=== PATIENT | male | born 1965 | race Caucasian/White ===

== ENCOUNTER → 2018-06-02 | Outpatient (CLI) | payer MEDICARE, MEDICAID ==
[~2018-06-02] MED LIST: ADVAIR HFA115 MCG/21 INH; AZITHROMYCIN 2250 MG PO; BENTYL 10 MG CA10 M1 PO; CIPRO500 MG PO; CLONIDINE0.1 PO; COLACE100 MG PO; CYMBALTA20 MG PO; FLAGYL500 MG PO; LASIX 20 MG TAB20 MG PO; LIORESAL 10 MG10 MG PO; MAXZIDE-25 MG1 EACH PO; MOBIC15 MG PO; OXYCODONE HCL10 MG PO; PREDNISONE 20 M20 M1 PO; PREDNISONE50 MG PO; REQUIP 0.25 M0.25 MG PO; SEROQUEL200 MG PO; TRAMADOL 50 MG50 MG PO; TYLENOL325 MG PO; VALIUM5 MG PO; VENLAFAXINE HC150 M1 PO; VISTARIL 25 MG25 M1 PO; ZANTAC 150MG T150 MG PO; ZPAK PO
== END ==
LOC: M.CT 05-19 07:52
DX: M47.816 Spondylosis without myelopathy or radiculopathy, lumbar region (principal); M48.061 Spinal stenosis, lumbar region without neurogenic claudication; M81.0 Age-related osteoporosis without current pathological fracture; Z88.0 Allergy status to penicillin

== ENCOUNTER 2018-09-12 20:23 | Emergency (ER) | payer MEDICARE, MEDICAID ==
[~2018-09-12] VITALS: Ht 185.4 cm; Wt 124.7 kg
[~2018-09-12 20:23] MED LIST changes: -OXYCODONE HCL10 MG PO; -PREDNISONE 20 M20 M1 PO; -SEROQUEL200 MG PO; -VENLAFAXINE HC150 M1 PO; -VISTARIL 25 MG25 M1 PO; -ZANTAC 150MG T150 MG PO; -ZPAK PO
[2018-09-12] MEDS ORDERED: OXYCODONE HCL10 MG PO (20:57)
[2018-09-12] MEDS ORDERED: ZANTAC 150MG T150 MG PO (20:58)
[2018-09-12] MEDS ORDERED: VENLAFAXINE HC150 M1 PO (20:58)
[2018-09-12] MEDS ORDERED: VISTARIL 25 MG25 M1 PO (20:59)
[2018-09-12] MEDS ORDERED: SEROQUEL200 MG PO (21:00)
[2018-09-12] MEDS ORDERED: ZPAK PO (21:56)
[2018-09-12] MEDS ORDERED: PREDNISONE 20 M20 M1 PO (21:56)
[2018-09-12 22:05] LABS: INFLUENZA A ANTIGEN None Detected (None Detect); INFLUENZA B ANTIGEN None Detected (None Detect)
[2018-09-12 22:35] VITALS: BP 115/54
== END 2018-09-12 22:38 | disposition home or self-care (01) ==
LOC: M.ERS 20:23
PROVIDERS: Nurse Practitioner Family
DX: J20.9 Acute bronchitis, unspecified (principal); M19.90 Unspecified osteoarthritis, unspecified site; Z88.0 Allergy status to penicillin; Z88.8 Allergy status to other drugs, medicaments and biological substances

== ENCOUNTER → 2018-11-30 | Outpatient (CLI) | payer MEDICARE, MEDICAID ==
[~2018-11-30] MED LIST changes: +OXYCODONE HCL10 MG PO; +PREDNISONE 20 M20 M1 PO; +SEROQUEL200 MG PO; +VENLAFAXINE HC150 M1 PO; +VISTARIL 25 MG25 M1 PO; +ZANTAC 150MG T150 MG PO; +ZPAK PO
[2018-11-30 11:58] LABS: ABSOLUTE BASOPHILS 0.1 thou/uL (0.0-0.2); ABSOLUTE EOSINOPHILS 0.2 thou/uL (0.0-0.7); ABSOLUTE LYMPHOCYTES 1.6 thou/uL (0.8-5.3); ABSOLUTE MONOCYTES 0.6 thou/uL (0.0-1.2); BASOPHILS 1.2 %; EOSINOPHILS 4.2 %; HEMATOCRIT 45.9 % (42.0-52.0); HEMOGLOBIN 15.3 gm/dL (14.0-18.0); LYMPHOCYTES 28.7 %; MCH 31.8 pg (26.0-34.0); MCHC 33.4 g/dL (28.0-37.0); MCV 95.2 fL (80.0-100.0); MPV 8.4 fl. (7.2-11.1); NUCLEATED RBCS 0 /100WBC; PLATELET COUNT* 252 thou/uL (150-400); POLYS 54.9 %; RBC 4.82 mil/uL (4.50-6.00); RDW-CV 13.3 % (10.5-14.5); WBC 5.4 thou/uL (4.0-11.0)
[2018-11-30 11:59] LABS: URINE BILIRUBIN NEGATIVE (Negative); URINE BLOOD NEGATIVE (Negative); URINE CLARITY CLEAR; URINE COLOR YELLOW; URINE GLUCOSE-RANDOM NEGATIVE (Negative); URINE KETONES NEGATIVE (Negative); URINE LEUKOCYTES-REFLEX NEGATIVE (Negative); URINE NITRITE-REFLEX NEGATIVE (Negative); URINE PROTEIN NEGATIVE (Negative); URINE SPECIFIC GRAVITY >= 1.030 (1.005-1.030); URINE UROBILINOGEN 0.2 E.U./dl (0.2-1.0)
[2018-11-30 12:06] LABS: CALCIUM 9.1 mg/dL (8.5-10.1); CREATININE 1.4 mg/dL (0.6-1.3); POTASSIUM 5.1 mmol/L (3.5-5.1)
== END ==
LOC: M.LAB 11:43
DX: M54.16 Radiculopathy, lumbar region (principal); M48.061 Spinal stenosis, lumbar region without neurogenic claudication; M51.26 Other intervertebral disc displacement, lumbar region

== ENCOUNTER → 2019-04-14 | Day surgery (SDC) | payer MEDICARE, MEDICAID ==
[~2019-04-14] MED LIST changes: +COLD PO; +FLOMAX0.4 MG PO; +NEURONTIN 300300 M1 PO; +PROAIR HFA8.5 GM INH; +PROMETHAZINE-C473 ML PO; +ROXICODONE15 M1 PO; +SEROQUEL 50 MG50 M1 PO; +SINUS PO; +SYMBICORT80 MCG/4.1 INH; +TESSALON PERLE100 MG PO
--- NOTE | ~2019-04-14 | OP ---
[address] [address] OPERATIVE REPORT Name: MUKESH WARD Room: [facility]..#: [id number] Admission: 04/14/19 Attend Phys: Elier Nayak MD Discharge: Date of : 63 Report #: [id number] THIS REPORT FOR: //name// CC: [facility] physician/PCP Elier Nayak DATE OF SERVICE: 04/14/2019 PROCEDURE PERFORMED: Drainage of hematoma, excision of 10 x 8 cm abdominal wall foreign body capsule mass. PREOPERATIVE DIAGNOSIS: A 10 x 8 cm abdominal wall mass. POSTOPERATIVE DIAGNOSIS: A 10 x 8 cm foreign body capsule with hematoma. INDICATION FOR PROCEDURE: The patient is a 53-year-old gentleman with history of pain pump placement in the right side of the abdominal wall. He developed symptomatic mass in this area. He understood the indications, benefits, risks, and alternatives having excision of this mass and wished to proceed. FINDINGS: There was a thickened foreign body capsule with associated hematoma and necrotic material present. PROCEDURE IN DETAIL: After informed consent was obtained from the patient, he was taken to the operating room and placed in supine position. Preoperative antibiotics were infused and sequential compression devices were applied. General anesthesia was established. The abdomen was prepped and draped in the usual sterile fashion. Horizontal incision was created over the mass with #10 blade. The mass was entered with #10 blade and hematoma evacuated. There was necrotic material, which was also evacuated and sent off along with the pathology specimen. A foreign body capsule was excised from the surrounding subcutaneous tissue with electrocautery and passed off to pathology. The wound was copiously irrigated. A closed suction 15-Tamazight MARIE drain was brought out through a stab incision and placed into the hematoma and foreign body wound cavity. This was secured to the skin with 3-0 nylon suture. The deep dermis was closed with interrupted 3-0 Vicryl suture. Local anesthetic was infiltrated in the skin. The skin was closed with edson. Sterile bandage was applied. The patient tolerated the procedure without complications and was taken to the recovery area in good condition. COMPLICATIONS: [place] [address] OPERATIVE REPORT Name: MUKESH WARD NIA Room: [facility]#: [id number] Admission: 04/14/19 Attend Phys: Elier Nayak MD Discharge: Date of : 63 Report #: [id number] ESTIMATED BLOOD LOSS: 20 mL. By: [id number] Nayak MD /nt
[2019-04-14 06:54] LABS: HEMATOCRIT 45.7 % (42.0-52.0); MCH 30.5 pg (26.0-34.0); MCHC 32.9 g/dL (28.0-37.0); MCV 92.7 fL (80.0-100.0); MPV 8.6 fl. (7.2-11.1); RBC 4.93 mil/uL (4.50-6.00); RDW-CV 13.1 % (10.5-14.5); WBC 6.6 thou/uL (4.0-11.0)
[2019-04-14 06:57] LABS: CALCIUM 8.8 mg/dL (8.5-10.1); CREATININE 1.2 mg/dL (0.6-1.3); POTASSIUM 3.7 mmol/L (3.5-5.1)
[2019-04-14 07:02] LABS: ALBUMIN 3.7 g/dL (3.4-5.0); TOTAL BILIRUBIN 0.7 mg/dL (<0.1-1.0); TOTAL PROTEIN 7.4 g/dL (6.4-8.2)
--- NOTE | 2019-04-14 17:16 | EKG ---
[place] [address] ELECTROCARDIOGRAM REPORT Name: MUKESH WARD Room: [facility]#: [id number] Admission: 04/14/19 Attend Phys: Elier Nayak MD Discharge: Date of : 63 Report #: [id number] THIS REPORT FOR: //name// [facility] Test Date: 2019-04-14 Test Time: 07:51:47 Pat Name: MUKESH WARD Department: Room: Gender: M Land [employer] Chief: : 1965 Requested By: Elier Nayak Order Number: [id number] Luz MD: Carter Navarrete Measurements Intervals [place] Rate: 61 P: 27 AR: 161 QRS: -22 QRSD: 94 T: 8 QT: 445 QTc: 449 Interpretive Statements Sinus rhythm Borderline left axis deviation Compared to ECG 03/15/2017 13:11:44 Myocardial infarct finding no longer present Electronically Signed On 04-14-2019 17:16:02 CDT by Carter Navarrete [email or web address] <ELECTRONICALLY SIGNED> By: Carter Navarrete MD, [facility] 04/14/19 1716 [id number] 075 Carter Navarrete MD, FACC /EPI
--- NOTE | 2019-04-18 14:05 | PATH ---
[facility] [address] [place] [address] PATHOLOGY RPT PROCEDURE Name: WILMER WARD Room: [facility] M.R.#: [id number] Admission: 04/14/19 Date of : 63 Discharge: Report #: [id number] Path Case #: [id number] [facility] Accession Number: [id number] . 01 Material submitted: . abdomen - FOREIGN BODY CAPSULE WITH HEMATOMA. Modifiers: right, wall . 01 Clinical history: . Right abdominal wall mass . 02 Diagnosis: Foreign body capsule with hematoma: - Benign fibrofatty tissue/dense fibrous capsular tissue with mild acute and chronic inflammation. (NOEL:laura; 04/18/2019) MBR/04/18/2019 . 02 Electronically signed: . David Lindo MD, Pathologist NPI- [id number] . 01 Gross description: . The specimen is received in formalin, labeled "Wilmer Day, foreign body capsule with hematoma". Received is a hollowed segment of yellow-edwards lobulated tissue surrounding capsular tissue measuring 7.7 x 6.7 x 4.8 cm in greatest dimensions. Further opening of the specimen reveals dusky capps-edwards, smooth to slightly shaggy cut surfaces with no grossly distinct nodules or lesions. The specimen is submitted representatively in cassettes A1 and A2. (CAA; 04/15/2019) QAC/QAC . 02 Pathologist provided ICD-10: M79.89 . 02 CPT . 600180 Specimen Comment: A courtesy copy of this report has been sent to Specimen Comment: [phone]. Specimen Comment: Report sent to Performed at: [address], [place] [id number] MD Torres Zhu MD Phone: [phone] Performed at: 02 [facility] [address], [place], [place] [id number] MD David Lindo MD Phone: [phone]
== END | disposition home or self-care (01) ==
LOC: M.SUR 04-11 06:50
PROVIDERS: Student in an Organized Health Care Education/Training Program
DX: S30.1XXA Contusion of abdominal wall, initial encounter (principal); M79.89 Other specified soft tissue disorders; T18.2XXA Foreign body in stomach, initial encounter; X58.XXXA Exposure to other specified factors, initial encounter; Y93.89 Activity, other specified; Y92.89 Other specified places as the place of occurrence of the external cause; Y99.8 Other external cause status; Z91.040 Latex allergy status; Z88.0 Allergy status to penicillin; Z88.8 Allergy status to other drugs, medicaments and biological substances

== ENCOUNTER 2019-04-21 11:31 | Emergency (ER) | payer MEDICARE, MEDICAID ==
[~2019-04-21] VITALS: Ht 185.4 cm; Wt 123.8 kg
[~2019-04-21 11:31] MED LIST changes: -COLD PO; -PROAIR HFA8.5 GM INH; -PROMETHAZINE-C473 ML PO; -SINUS PO; -SYMBICORT80 MCG/4.1 INH; -TESSALON PERLE100 MG PO
[2019-04-21] MEDS ORDERED: SINUS PO (11:43)
[2019-04-21] MEDS ORDERED: COLD PO (11:43)
[2019-04-21] MEDS ORDERED: SYMBICORT80 MCG/4.1 INH (11:44)
[2019-04-21] MEDS ORDERED: PROAIR HFA8.5 GM INH (11:44)
[2019-04-21] MEDS ORDERED: PROMETHAZINE-C473 ML PO (12:42)
[2019-04-21] MEDS ORDERED: ZPAK PO (12:42)
[2019-04-21] MEDS ORDERED: TESSALON PERLE100 MG PO (12:43)
[2019-04-21 13:01] VITALS: BP 132/63
--- NOTE | 2019-04-21 14:31 | EKG ---
[place] [address] ELECTROCARDIOGRAM REPORT Name: MUKESH WARD NIA [id number] Admission: 04/21/19 Attend Phys: Discharge: 04/21/19 Date of : 63 Report #: [id number] THIS REPORT FOR: //name// [facility] ED Test Date: 2019-04-21 Test Time: 12:26:49 Pat Name: MUKESH WARD Department: Room: Gender: M Director Personal: : 1965 Requested By: Gilbert Akins Order Number: [id number] MD: Deepak Arevalo Measurements Intervals [place] Rate: 79 P: 45 NE: 150 QRS: -34 QRSD: 86 T: 31 QT: 372 QTc: 427 Interpretive Statements Sinus rhythm Left axis deviation Compared to ECG 04/14/2019 07:51:47 No significant changes Electronically Signed On 04-21-2019 14:31:39 CDT by Deepak Arevalo [email or web address] <ELECTRONICALLY SIGNED> By: Deepak Arevalo MD, [facility] 04/21/19 1431 1226 1226 Deepak Arevalo MD, FACC /EPI
== END 2019-04-21 13:02 | disposition home or self-care (01) ==
LOC: M.ERS 11:31
DX: J20.9 Acute bronchitis, unspecified (principal); M19.90 Unspecified osteoarthritis, unspecified site; G25.81 Restless legs syndrome; F17.210 Nicotine dependence, cigarettes, uncomplicated; Z91.040 Latex allergy status; Z88.0 Allergy status to penicillin; Z88.8 Allergy status to other drugs, medicaments and biological substances; Z91.048 Other nonmedicinal substance allergy status

== ENCOUNTER 2019-10-28 22:56 | Emergency (ER) | payer MEDICARE, MEDICAID ==
[~2019-10-28] VITALS: Ht 185.4 cm; Wt 122.0 kg
[~2019-10-28 22:56] MED LIST changes: +COLD PO; +PROAIR HFA8.5 GM INH; +PROMETHAZINE-C473 ML PO; +SINUS PO; +SYMBICORT80 MCG/4.1 INH; +TESSALON PERLE100 MG PO
[2019-10-28] MEDS ORDERED: LASIX 40 MG TAB40 MG PO (23:14)
[2019-10-28] MEDS ORDERED: HYDROXYZINE HCL25 M2 PO (23:14)
[2019-10-29] MEDS ORDERED: NORCO 5-325 TA1 EAC1 PO (00:10)
[2019-10-29 00:54] VITALS: BP 126/68
== END 2019-10-29 00:55 | disposition home or self-care (01) ==
LOC: M.ERS 22:56
DX: S93.492A Sprain of other ligament of left ankle, initial encounter (principal); M19.90 Unspecified osteoarthritis, unspecified site; F17.290 Nicotine dependence, other tobacco product, uncomplicated; Z88.0 Allergy status to penicillin; Z91.040 Latex allergy status; Z88.8 Allergy status to other drugs, medicaments and biological substances; Z98.890 Other specified postprocedural states; W00.0XXA Fall on same level due to ice and snow, initial encounter; Y92.89 Other specified places as the place of occurrence of the external cause; Y93.89 Activity, other specified; Y99.8 Other external cause status

== ENCOUNTER 2020-07-07 19:55 | Emergency (ER) | payer MEDICARE ==
[~2020-07-07] VITALS: Ht 185.4 cm; Wt 124.7 kg
[~2020-07-07 19:55] MED LIST changes: +HYDROXYZINE HCL25 M2 PO; +LASIX 40 MG TAB40 MG PO; +NORCO 5-325 TA1 EAC1 PO
[2020-07-07 20:52] VITALS: BP 108/68
== END 2020-07-07 20:53 | disposition home or self-care (01) ==
LOC: M.ERS 19:55
DX: S80.211A Abrasion, right knee, initial encounter (principal); M19.90 Unspecified osteoarthritis, unspecified site; G25.81 Restless legs syndrome; G89.29 Other chronic pain; F17.220 Nicotine dependence, chewing tobacco, uncomplicated; Z91.040 Latex allergy status; Z88.0 Allergy status to penicillin; Z88.8 Allergy status to other drugs, medicaments and biological substances; W01.0XXA Fall on same level from slipping, tripping and stumbling without subsequent striking against object, initial encounter; Y93.89 Activity, other specified; Y92.89 Other specified places as the place of occurrence of the external cause; Y99.8 Other external cause status

== ENCOUNTER 2020-11-23 18:20 | Emergency (ER) | payer MEDICARE ==
[~2020-11-23] VITALS: Ht 185.4 cm; Wt 137.0 kg
[2020-11-23 22:20] VITALS: BP 111/71
== END 2020-11-23 22:20 | disposition home or self-care (01) ==
LOC: M.ERS 18:20
DX: M79.604 Pain in right leg (principal); Z79.899 Other long term (current) drug therapy; Z88.0 Allergy status to penicillin; Z88.8 Allergy status to other drugs, medicaments and biological substances; Z91.040 Latex allergy status; Z91.048 Other nonmedicinal substance allergy status

== ENCOUNTER 2021-12-03 18:38 | Emergency (ER) | payer MEDICARE ==
[~2021-12-03] VITALS: Ht 185.4 cm; Wt 125.2 kg
[2021-12-03 20:34] LABS: URINE BILIRUBIN NEGATIVE (Negative); URINE BLOOD 1+ (Negative); URINE CLARITY CLEAR; URINE COLOR YELLOW; URINE GLUCOSE-RANDOM NEGATIVE (Negative); URINE KETONES NEGATIVE (Negative); URINE LEUKOCYTES NEGATIVE (Negative); URINE NITRITE NEGATIVE (Negative); URINE PROTEIN NEGATIVE (Negative); URINE SPECIFIC GRAVITY 1.025 (1.005-1.030); URINE UROBILINOGEN 0.2 E.U./dl (0.2-1.0)
[2021-12-03 20:45] LABS: URINE WBC 0-5 Rare /HPF (0-5)
[2021-12-03 20:46] LABS: BACTERIA None Seen /HPF (None Seen); CASTS None Seen /LPF (None Seen); MUCUS None Seen strn/LPF (None Seen); SQUAMOUS NONE SEEN /LPF (0-3)
[2021-12-03 20:48] LABS: CALCIUM OXALATE 0-3 Few /LPF (None Seen)
[2021-12-03 20:49] LABS: URINE RBC 3-10 Few /HPF (0-2)
[2021-12-03 21:16] LABS: ABSOLUTE BASOPHILS 0.1 thou/uL (0.0-0.2); ABSOLUTE EOSINOPHILS 0.4 thou/uL (0.0-0.7); ABSOLUTE LYMPHOCYTES 1.5 thou/uL (0.8-5.3); ABSOLUTE MONOCYTES 0.8 thou/uL (0.0-1.2); ABSOLUTE NEUTROPHILS 4.6 thou/uL (1.6-8.1); BASOPHILS 0.7 %; EOSINOPHILS 5.5 %; HEMATOCRIT 43.5 % (42.0-52.0); HEMOGLOBIN 14.2 gm/dL (14.0-18.0); LYMPHOCYTES 20.8 %; MCH 29.6 pg (26.0-34.0); MCHC 32.6 g/dL (28.0-37.0); MCV 90.6 fL (80.0-100.0); MONOCYTES 10.6 %; MPV 8.2 fl. (7.2-11.1); NUCLEATED RBCS 0 /100WBC; PLATELET COUNT* 238 thou/uL (150-400); POLYS 62.4 %; RDW-CV 13.7 % (10.5-14.5); WBC 7.3 thou/uL (4.0-11.0)
[2021-12-03 21:20] LABS: CALCIUM 8.6 mg/dL (8.5-10.1); CREATININE 1.2 mg/dL (0.6-1.3)
[2021-12-03 21:24] LABS: ALBUMIN 3.3 g/dL (3.4-5.0); TOTAL BILIRUBIN 0.6 mg/dL (<0.1-1.0); TOTAL PROTEIN 7.5 g/dL (6.4-8.2)
[2021-12-03 21:33] VITALS: BP 147/84
== END 2021-12-03 21:33 | disposition home or self-care (01) ==
LOC: M.ERS 18:38
PROVIDERS: Physician Assistant
DX: T83.098A Other mechanical complication of other urinary catheter, initial encounter (principal); G89.18 Other acute postprocedural pain; M19.90 Unspecified osteoarthritis, unspecified site; Z98.890 Other specified postprocedural states; Z79.899 Other long term (current) drug therapy; Z91.040 Latex allergy status; Z88.0 Allergy status to penicillin; Z91.048 Other nonmedicinal substance allergy status; Z88.8 Allergy status to other drugs, medicaments and biological substances; Y83.8 Other surgical procedures as the cause of abnormal reaction of the patient, or of later complication, without mention of misadventure at the time of the procedure; Y92.89 Other specified places as the place of occurrence of the external cause